=== PATIENT | female | born 1995 | race Caucasian/White ===

== ENCOUNTER → 2023-07-15 07:25 | Outpatient (REF) | payer BC, SELFPAY | LOC: PNTC 07:25 | PROVIDERS: ATTENDING PHYSICIAN Obstetrics & Gynecology | DX: Z36.0 Encounter for antenatal screening for chromosomal anomalies (principal); Z36.82 Encounter for antenatal screening for nuchal translucency | CPT/HCPCS: 76801; 76813 ==

== ENCOUNTER → 2023-07-23 14:20 | Outpatient (REF) | payer BC, SELFPAY | LOC: RAD 14:20 | PROVIDERS: ATTENDING PHYSICIAN Obstetrics & Gynecology | DX: O26.851 Spotting complicating pregnancy, first trimester (principal) | CPT/HCPCS: 76815 ==

== ENCOUNTER 2023-08-12 19:41 | Emergency (ER) | payer BC, SELFPAY ==
[2023-08-12 20:02] VITALS: BP 102/86
--- NOTE | 2023-08-12 21:46 | ED.GENMED ---
History of Present Illness
General
Chief Complaint: DVT/Possible Blood Clot
Source: patient
Exam Limitations: none
Time Seen by Provider: 08/12/23 20:22
Nursing documentation reviewed up to this point in time: agreed with
Travel History
Have you had any contact with someone who has COVID-19?: No
Do you have any symptoms of coronavirus? Fever > 100 degrees, chills, cough, shortness of breath, sore throat, loss of taste or smell, muscle aches, or headache?: No
History of Present Illness
History of Present Illness:
Patient to ED with complaint of pain to right plantar foot radiating into right lower leg. Symptoms started this week. No history of trauma SHe is 17weeks . She is concerned for DVT
Past History
Past History
ED Past Medical History: None
Review of Systems
Review of Systems
Allergies reviewed?: Yes
All Other Systems: ROS reviewed and negative except as documented in HPI and ROS
Constitutional: Reports no symptoms
EENT: Reports no symptoms
Respiratory: Reports no symptoms
Cardiac: Reports no symptoms
ABD/GI: Reports no symptoms
Musculoskeletal: Reports joint pain (pain to plantar surface of right foot radiating to right lower leg.)
Skin: Reports no symptoms
Neurological: Reports no symptoms
Psychiatric: Reports no symptoms
Phy Exam
General Physical Exam
General Presentation: well appearing and no apparent distress
General age: appears stated age
General Skin: warm and dry
General Habitus: normal
General Mental: alert
Musculoskeletal Exam
Musculoskeletal Exam: neuro vasc intact and other (Achilles intact)
Skin Exam
Skin Exam: normal color, warm/dry and no rash
Psychiatric Exam
Psychiatric Exam: normal mood/affect
Course
Orders/Labs/Results
Orders:
Orders
08/12/23 20:06
US Periph Venous LOWER Ext RT Urgent
Comment:
Reason For Exam: swelling
Vital Signs
Initial and Last Documented VS:
Initial Vital Signs
Temp Pulse Resp BP Pulse Ox
98.3 F 93 22 102/86 100
08/12/23 20:02 08/12/23 20:02 08/12/23 20:02 08/12/23 20:02 08/12/23 20:02
Last Documented Vital Signs
Temp Pulse Resp BP Pulse Ox
98.3 F 93 22 102/86 100
08/12/23 20:02 08/12/23 20:02 08/12/23 20:02 08/12/23 20:02 08/12/23 20:02
*Radiology
Radiology exam reviewed: radiology read reviewed
*Pulse Oximetry
Patient hypoxic: no
*Critical Care Note
Total Time (30-74mins, 75-104mins- exclusive of procedures): Not Applicable
ED Attending Note
-
Portions of this chart may have been created with voice recognition software.� Occasional wrong word or��sound alike� substitutions may have occurred due to the inherent limitations of voice recognition software.
Discharge Plan
Departure
Patient Disposition: Home (Routine Discharge)
Date of Disposition: 08/12/23
Time of Disposition: 21:37
Patient with high blood pressure during this ER visit?: No
Condition: Good
Covid-19: Not Applicable
Discharge Problem:
Plantar fasciitis
Instructions: Plantar fasciitis, Using Cold for Pain
Referrals:
NONE,* [Family Provider] -
Activity Restrictions/Additional Instructions:
Follow up with your family doctor.
Interventions
Interventions:
*Risk Screen - Suicide Last Done: 08/12/23 19:58
*General Assessment Last Done: 08/12/23 19:58
*Neglect/Abuse Screening Last Done: 08/12/23 19:58
*ED COVID-19 Vaccine History Last Done: 08/12/23 19:58
ED- Cardiac Assessment Last Done: 08/12/23 20:26
ED- Pulmonary Assessment Last Done: 08/12/23 20:26
ED-Skin Assessment Last Done: 08/12/23 20:25
Discharge Date and Time
Print Language: CONGOLESE
Musculoskeletal Injury Exam
Musculoskeletal Injury Exam
Right Plantar Foot:
Pain with Movement?: Moderate
Tender to palpation?: Moderate
Soft tissue swelling?: Mild
Joint effusion?: None
Contusion?: None
Hematoma-local bleeding into tissue?: None
Crepitus with movement?: No
Joint instability?: No
Malalignment/deformity?: No
Range of motion: Limited
Capillary Refill: normal
Normal distal neurovascular exam?: Yes
Peripheral Pulses: posterior tibial (right): 3+ and dorsalis pedis (right): 3+
[2023-08-12 22:08] VITALS: BP 98/60
== END 2023-08-12 22:09 | disposition home or self-care (01) ==
LOC: EMR 19:41
PROVIDERS: EMERGENCY PHYSICIAN Emergency Medicine; REFERRING PHYSICIAN Obstetrics & Gynecology
DX: M72.2 Plantar fascial fibromatosis (principal)
CPT/HCPCS: 99284; 93971